=== PATIENT | female | born 1980 | race Hispanic/Latino ===

== ENCOUNTER 2022-11-18 07:43 | Emergency (ER) | payer MEDICAID, SELFPAY ==
[2022-11-18] MEDS ORDERED: Acetaminophen 500 MG TAB ONE (08:20)
[2022-11-18] MEDS ORDERED: Fentanyl 100 MCG/2 ML VIAL ONE (08:21)
[2022-11-18] MEDS ORDERED: Bacitracin 1 PK ONE (08:46)
[2022-11-18 08:53] LABS: Bilirubin Negative (Negative); Blood, Urine Negative (Negative); Clarity Clear (Clear); Glucose, Urine (Dipstick) Normal (Negative); Ketone, Urine Negative (Negative); Leukocyte Negative Leu/uL (Negative); Nitrite Negative (Negative); Protein, Urine (Dipstick) Negative (Neg-Trace); Urobilinogen Normal mg/dL (Less than 2)
[2022-11-18 08:56] LABS: Pregnancy Test - Urine (BHCG) Negative (Negative); Pregu Control Background? CLEAR/WHITE (CLR/WHITE); Pregu Control Bar Appear? YES (CONTROL BAR)
== END 2022-11-18 08:57 | disposition home or self-care (01) ==
LOC: ERS 07:43
DX: T24.211A Burn of second degree of right thigh, initial encounter (principal); T31.0 Burns involving less than 10% of body surface; X12.XXXA Contact with other hot fluids, initial encounter
CPT/HCPCS: 81003; 81025; 96374; J3010